=== PATIENT | female | born 1935 | race Caucasian/White ===

== ENCOUNTER 2021-08-07 04:57 | Inpatient (IN) | payer MEDICARE, OTHER ==
[~2021-08-07] VITALS: Ht 157.5 cm; Wt 82.4 kg
[2021-08-07 05:49] LABS: BASOPHIL 0.3 % (0-2); EOSINOPHIL 0.6 % (0-7); HCT 35.3 % (37.0-47.0); HGB 11.7 g/dl (12.5-16.0); LYMPHOCYTE 15.7 % (15-48); MCHC 33.1 g/dL (32.0-36.0); MCV 99.4 fL (78.0-100.0); MONOCYTE 7.6 % (0-12); MPV 10.7 fL (6.0-9.5); NEUTROPHIL 75.4 % (41-80); NRBC 0; PLT 183 K/uL (150-400); RBC 3.55 M/uL (4.20-5.40); WBC 9.3 K/uL (4.0-10.5)
[2021-08-07 06:18] LABS: ALBUMIN 3.3 g/dL (3.4-5.0); BILIRUBIN - TOTAL 0.8 mg/dL (0.2-1.0); BUN/CREAT RATIO (CALC) 14.4 RATIO; CREATININE 1.18 mg/dL (0.51-0.95); GLOBULIN (CALCULATION) 3.9 g/dL; MAGNESIUM 1.7 mg/dL (1.8-2.4); TOTAL PROTEIN 7.2 g/dL (6.4-8.2)
[2021-08-07 07:20] LABS: INFLUENZA A NAA NEGATIVE (NEGATIVE)
[2021-08-07 07:23] LABS: CORONAVIRUS 2019 SARS-COV-2 POSITIVE (NEGATIVE)
[2021-08-07 07:28] LABS: INR 2.03 (0.9-1.2); PROTHROMBIN TIME 22.1 SECONDS (11.8-13.4); PTT 36.9 SECONDS (24.4-34.7)
[2021-08-07 07:29] LABS: LACTIC ACID 1.7 mmol/L (0.4-1.9)
[2021-08-07] MEDS ORDERED: IRBESARTAN150 MG PO (12:30)
[2021-08-07] MEDS ORDERED: SIMVASTATIN40 MG PO (12:30)
[2021-08-07] MEDS ORDERED: ZOLPIDEM TARTRA10 MG PO (12:31)
[2021-08-07] MEDS ORDERED: WARFARIN SODIUM2 MG PO (12:31)
[2021-08-07 12:36] LABS: BILIRUBIN 1+ mg/dL (NEGATIVE); BLOOD TRACE-INTACT Ery/uL (NEGATIVE); CLARITY CLEAR (CLEAR); COLOR YELLOW (YELLOW); GLUCOSE (U) NORMAL (NORMAL); LEUKOCYTES 1+ Leu/uL (NEGATIVE); NITRITE NEGATIVE (NEGATIVE); PROTEIN TRACE (LOW) mg/dL (NEGATIVE); SPECIFIC GRAVITY 1.025 (1.001-1.030); UROBILINOGEN 0.2 mg/dL (0.2-1.0)
[2021-08-07 12:46] LABS: BACTERIA 1+; URINARY RBC RARE
[2021-08-07 15:18] LABS: MAGNESIUM 1.9 mg/dL (1.8-2.4)
[2021-08-07] MEDS ORDERED: POTASSIUM CHLO10 ME1 PO (16:07)
[2021-08-07] MEDS ORDERED: LASIX20 MG PO (16:07)
[2021-08-07] MEDS ORDERED: ALLOPURINOL 10100 MG PO (16:07)
[2021-08-07] MEDS ORDERED: SOTALOL80 MG PO (16:08)
[2021-08-08 02:35] LABS: BASOPHIL 0.1 % (0-2); EOSINOPHIL 0 % (0-7); HCT 30.9 % (37.0-47.0); HGB 10.3 g/dl (12.5-16.0); LYMPHOCYTE 17.7 % (15-48); MCH 33.3 pg (25.0-31.0); MCHC 33.3 g/dL (32.0-36.0); MONOCYTE 11.2 % (0-12); MPV 10.5 fL (6.0-9.5); NEUTROPHIL 70.7 % (41-80); NRBC 0; PLT 160 K/uL (150-400); RBC 3.09 M/uL (4.20-5.40); RDW 14.1 % (11.5-14.0); WBC 7.5 K/uL (4.0-10.5)
[2021-08-08 02:58] LABS: ALBUMIN 2.8 g/dL (3.4-5.0); BILIRUBIN - TOTAL 0.4 mg/dL (0.2-1.0); CREATININE 1.12 mg/dL (0.51-0.95); PHOSPHORUS 2.8 mg/dL (2.6-4.7); POTASSIUM 3.6 mmol/L (3.5-5.1); TOTAL PROTEIN 5.8 g/dL (6.4-8.2)
[2021-08-08 03:14] LABS: MAGNESIUM 2.7 mg/dL (1.8-2.4)
--- NOTE | 2021-08-08 13:41 | NUR ---
08/08/21 Please monitor for 02 needs.
[2021-08-09 06:43] LABS: BASOPHIL 0 % (0-2); EOSINOPHIL 0 % (0-7); HGB 11.6 g/dl (12.5-16.0); LYMPHOCYTE 32.4 % (15-48); MCH 32.5 pg (25.0-31.0); MCHC 32.2 g/dL (32.0-36.0); MCV 100.8 fL (78.0-100.0); MONOCYTE 10.6 % (0-12); MPV 11.1 fL (6.0-9.5); NEUTROPHIL 56.4 % (41-80); NRBC 0; PLT 166 K/uL (150-400); RBC 3.57 M/uL (4.20-5.40); RDW 13.9 % (11.5-14.0); WBC 5.3 K/uL (4.0-10.5)
[2021-08-09 06:49] LABS: INR 1.81 (0.9-1.2); PROTHROMBIN TIME 20.2 SECONDS (11.8-13.4)
[2021-08-09 07:02] LABS: ALBUMIN 3.1 g/dL (3.4-5.0); BILIRUBIN - TOTAL 0.6 mg/dL (0.2-1.0); BUN/CREAT RATIO (CALC) 21.7 RATIO; C-REACTIVE PROTEIN 7.8 mg/dL (<=0.90); CREATININE 1.15 mg/dL (0.51-0.95); GLOBULIN (CALCULATION) 3.9 g/dL
[2021-08-09] MEDS ORDERED: ATROVENT HFA12.9 GM INH (10:46)
[2021-08-09] MEDS ORDERED: DEXAMETHASONE 2M2 MG PO ×2 (10:46→10:58)
[2021-08-09] MEDS ORDERED: LEVALBUTEROL TA15 GM INH (10:46)
[2021-08-09] MEDS ORDERED: LOPRESSOR25 MG PO (10:46)
[2021-08-09] MEDS ORDERED: FOLIC ACID1 MG PO (10:46)
== END 2021-08-09 12:24 | disposition home or self-care (01) | DRG 177 ==
LOC: FER 04:57 → FTCU 09:02
PROVIDERS: Emergency Medicine; Emergency Medicine Emergency Medical Services; Nurse Practitioner; ADMIT Family Medicine
PROC: XW033E5 Introduction of Remdesivir Anti-infective into Peripheral Vein, Percutaneous Approach, New Technology Group 5 (ICD-10-PCS; principal; 2021-08-07)
DX: U07.1 COVID-19 (principal); J12.82 Pneumonia due to coronavirus disease 2019; J96.01 Acute respiratory failure with hypoxia; I21.A1 Myocardial infarction type 2; N17.9 Acute kidney failure, unspecified; I48.91 Unspecified atrial fibrillation; R73.9 Hyperglycemia, unspecified; N18.9 Chronic kidney disease, unspecified; D53.9 Nutritional anemia, unspecified; E87.6 Hypokalemia; T38.0X5A Adverse effect of glucocorticoids and synthetic analogues, initial encounter; I44.7 Left bundle-branch block, unspecified; M10.9 Gout, unspecified; I50.9 Heart failure, unspecified; Z79.01 Long term (current) use of anticoagulants; Z79.82 Long term (current) use of aspirin; Z79.899 Other long term (current) drug therapy; Z90.710 Acquired absence of both cervix and uterus; Z87.442 Personal history of urinary calculi; Z83.3 Family history of diabetes mellitus; Z82.49 Family history of ischemic heart disease and other diseases of the circulatory system
CPT/HCPCS: 36415; 36600; 71045; 71250; 80053; 81001; 82607; 82728; 82803; 82962; 83036; 83605; 83615; 83735; 83880; 84100; 84145; 84443; 84484; 85025; 85379; 85610; 85730; 86140; 87040; 87088; 93005; 94010; 94640; 94664; 94667; 94668; C9399; J1650; J2405; J3475; J7040; J7050; J8540; U0002

== ENCOUNTER 2021-08-13 17:51 | Emergency (ER) | payer MEDICARE, OTHER ==
[~2021-08-13 17:51] MED LIST: ALLOPURINOL 10100 MG PO; ATROVENT HFA12.9 GM INH; DEXAMETHASONE 2M2 MG PO; FOLIC ACID1 MG PO; IRBESARTAN150 MG PO; LASIX20 MG PO; LEVALBUTEROL TA15 GM INH; LOPRESSOR25 MG PO; POTASSIUM CHLO10 ME1 PO; SIMVASTATIN40 MG PO; SOTALOL80 MG PO; WARFARIN SODIUM2 MG PO; ZOLPIDEM TARTRA10 MG PO
[2021-08-13 19:06] LABS: BASOPHIL 0.2 % (0-2); EOSINOPHIL 0 % (0-7); HCT 36.4 % (37.0-47.0); HGB 12.1 g/dl (12.5-16.0); LYMPHOCYTE 8.2 % (15-48); MCHC 33.2 g/dL (32.0-36.0); MCV 99.2 fL (78.0-100.0); MONOCYTE 5.2 % (0-12); MPV 10.6 fL (6.0-9.5); NEUTROPHIL 84.5 % (41-80); NRBC 0.4; PLT 222 K/uL (150-400); RBC 3.67 M/uL (4.20-5.40); RDW 13.8 % (11.5-14.0); WBC 10.7 K/uL (4.0-10.5)
[2021-08-13 19:43] LABS: LACTIC ACID 3.5 mmol/L (0.4-1.9)
[2021-08-13 19:48] LABS: ALBUMIN 3.4 g/dL (3.4-5.0); BILIRUBIN - TOTAL 0.7 mg/dL (0.2-1.0); BUN/CREAT RATIO (CALC) 24.6 RATIO; CREATININE 1.38 mg/dL (0.51-0.95); GLOBULIN (CALCULATION) 3.3 g/dL; POTASSIUM 4.4 mmol/L (3.5-5.1); TOTAL PROTEIN 6.7 g/dL (6.4-8.2)
[2021-08-13 19:52] LABS: BILIRUBIN NEGATIVE (NEGATIVE); BLOOD 1+ Ery/uL (NEGATIVE); CLARITY CLEAR (CLEAR); COLOR YELLOW (YELLOW); GLUCOSE (U) 1+ mg/dL (NORMAL); LEUKOCYTES 2+ Leu/uL (NEGATIVE); NITRITE NEGATIVE (NEGATIVE); PROTEIN TRACE (LOW) mg/dL (NEGATIVE); UROBILINOGEN 0.2 mg/dL (0.2-1.0)
[2021-08-13 19:56] LABS: AMPHETAMINES NEGATIVE (NEGATIVE); BARBITURATES NEGATIVE (NEGATIVE); ECSTASY (MDMA) NEGATIVE (NEGATIVE); MARIJUANA (THC) NEGATIVE (NEGATIVE); METHADONE NEGATIVE (NEGATIVE); OPIATES NEGATIVE (NEGATIVE); OXYCODONE NEGATIVE (NEGATIVE)
[2021-08-13 20:06] LABS: BACTERIA 3+
[2021-08-13 21:01] LABS: INR 2.71 (0.9-1.2); PROTHROMBIN TIME 27.8 SECONDS (11.8-13.4); PTT 35.5 SECONDS (24.4-34.7)
[2021-08-13] MEDS ORDERED: BACTRIM DS TAB1 EACH PO (22:18)
== END 2021-08-13 23:57 | disposition home or self-care (01) ==
LOC: FER 17:51
PROVIDERS: Emergency Medicine Emergency Medical Services; Physician Assistant
DX: U07.1 COVID-19 (principal); J12.82 Pneumonia due to coronavirus disease 2019; N30.00 Acute cystitis without hematuria; I48.91 Unspecified atrial fibrillation
CPT/HCPCS: 36415; 36600; 70450; 71045; 80053; 80305; 81001; 82803; 83605; 84439; 84443; 84484; 85025; 85610; 85730; 93005; J0696; J7040